=== PATIENT | male | born 1965 | race Caucasian/White ===

== ENCOUNTER 2016-03-08 15:54 | Emergency (ER) | payer MEDICAID ==
[~2016-03-08] VITALS: Ht 180.3 cm; Wt 78.3 kg
[~2016-03-08 15:54] MED LIST: NAPR-576 PO
[2016-03-08 15:59] VITALS: BP 120/73; PULSE 86; RESP 16; TEMP 98.7; O2SAT 100
[2016-03-08] MEDS ORDERED: SODIUM CHLORIDE 0.9% FLUSH 5 ML FLUSH IVF PRN (16:30)
[2016-03-08 17:13] LABS: AUTOMATED NEUTROPHIL # 5.1 TH/MM3 (1.8-7.7); BASOPHIL # 0.1 TH/MM3 (0-0.2); BASOPHIL % 1.1 % (0.0-2.0); EOSINOPHIL # 0.2 TH/MM3 (0-0.4); EOSINOPHIL % 2.4 % (0.0-4.0); HEMATOCRIT 44.5 % (39.0-51.0); HEMO FLAGS DIFF FINAL; LYMPH % 33.9 % (9.0-44.0); MEAN CELL VOLUME 94.9 FL (80.0-100.0); MEAN CORPUSCULAR HEMOGLOBIN 32.3 PG (27.0-34.0); MEAN CORPUSCULAR HGB CONC 34.1 % (32.0-36.0); MONO % 5.6 % (0.0-8.0); PLATELET COUNT 248 TH/MM3 (150-450); POTASSIUM 4.2 MEQ/L (3.5-5.1); RED BLOOD COUNT 4.69 MIL/MM3 (4.50-5.90); RED CELL DISTRIBUTION WIDTH 13.3 % (11.6-17.2); WHITE BLOOD COUNT 8.9 TH/MM3 (4.0-11.0)
[2016-03-08 17:16] LABS: BICARBONATE 27.6 MEQ/L (21.0-32.0)
--- NOTE | 2016-03-08 17:16 | PD ---
HPI Chief Complaint: Musculoskeletal Complaint Time Seen by Provider: 16:16 Travel History International Travel<30 days: No Contact w/Intl Traveler<30days: No Traveled to known affect area: No History of Present Illness HPI 51-year-old male presents to the emergency room for evaluation of left calf pain for the past 4 days. Patient states it started off as a muscle spasm that woke him up in the middle of the night. The severe muscle spasm went away but he has continued residual pain that is worsened with palpation and ambulation. He has not taken anything for pain. Reports similar symptoms in the right leg previously but not at this time. He denies recent immobilization, history of cancer, history of DVT or PE. Reports father is on Coumadin for blood clots. PFSH Past Medical History Asthma: Yes (as a child) Anxiety: Yes Depression: Yes Heart Rhythm Problems: Yes Cardiovascular Problems: Yes Diminished Hearing: No Diverticulitis: Yes Endocrine: No Gastrointestinal Disorders: Yes (hx of diverticulitis) Genitourinary: No Immune Disorder: No Implanted Vascular Access Dvce: No Musculoskeletal: No Neurologic: No Psychiatric: Yes Reproductive: No Respiratory: Yes (ASTHMA) Immunizations Current: Yes Radiation Therapy: No Tetanus Vaccination: < 5 Years Influenza Vaccination: No PNEUMOCCOCAL Vaccine (Year): 2 Past Surgical History Abdominal Surgery: Yes (COLON RESECTION ) Oral Surgery: Yes (deviated septum repair) Pacemaker: No Other Surgery: Yes (NOSE REPAIR 1982) Family History Family Myocardial Infarction: Yes Family Hypercholesterolemia: Yes Social History Alcohol Use: Yes (OCC) Tobacco Use: Yes (1 PPD) Substance Use: No Allergies-Medications (Allergen,Severity, Reaction): Coded Allergies: No Known Allergies (Verified , 03/08/16) Reported Meds & Prescriptions Reported Meds & Active Scripts Active Ibuprofen 800 Mg Tab 800 Mg PO Q8H PRN Robaxin (Methocarbamol) 750 Mg Tab 750 Mg PO Q8HR Review of Systems Except as stated in HPI: all other systems reviewed are Neg Physical Exam Narrative GENERAL: Well-nourished, well-developed male in no acute distress. Afebrile. Ambulatory. SKIN: Warm and dry. HEAD: Normocephalic. EYES: No scleral icterus. No injection or drainage. NECK: Supple, trachea midline. No JVD or lymphadenopathy. EXTREMITY: Left calf is tender to palpation. Full range of motion in all joints. No edema. 2+ dorsalis pedis pulse in the left. No erythema or ecchymosis. Data Data Last Documented VS Vital Signs Date Time Temp Pulse Resp B/P Pulse Ox O2 Delivery O2 Flow Rate FiO2 03/08/16 15:59 98.7 86 16 120/73 100 Orders Prothrombin Time / Inr (Pt) (03/08/16 16:28) Act Partial Throm Time (Ptt) (03/08/16 16:28) Complete Blood Count With Diff (03/08/16 16:28) Basic Metabolic Panel (Bmp) (03/08/16 16:28) Iv Access Insert/Monitor (03/08/16 16:28) Sodium Chloride 0.9% Flush (Ns Flush) (03/08/16 16:30) D-Dimer (03/08/16 16:28) Us Leg Venous Doppler (03/08/16 ) Labs Laboratory Tests Test 03/08/16 16:40 White Blood Count 8.9 TH/MM3 Red Blood Count 4.69 MIL/MM3 Hemoglobin 15.2 GM/DL Hematocrit 44.5 % Mean Corpuscular Volume 94.9 FL Mean Corpuscular Hemoglobin 32.3 PG Mean Corpuscular Hemoglobin 34.1 % Concent Red Cell Distribution Width 13.3 % Platelet Count 248 TH/MM3 Mean Platelet Volume 8.9 FL Neutrophils (%) (Auto) 57.0 % Lymphocytes (%) (Auto) 33.9 % Monocytes (%) (Auto) 5.6 % Eosinophils (%) (Auto) 2.4 % Basophils (%) (Auto) 1.1 % Neutrophils # (Auto) 5.1 TH/MM3 Lymphocytes # (Auto) 3.0 TH/MM3 Monocytes # (Auto) 0.5 TH/MM3 Eosinophils # (Auto) 0.2 TH/MM3 Basophils # (Auto) 0.1 TH/MM3 CBC Comment DIFF FINAL Differential Comment Prothrombin Time 10.7 SEC Prothromb Time International 1.0 RATIO Ratio Activated Partial 29.6 SEC Thromboplast Time D-Dimer Quantitative (PE/DVT) LESS THAN 0.19 MG/L FEU Sodium Level 143 MEQ/L Potassium Level 4.2 MEQ/L Chloride Level 108 MEQ/L Carbon Dioxide Level 27.6 MEQ/L Anion Gap 7 MEQ/L Blood Urea Nitrogen 14 MG/DL Creatinine 0.83 MG/DL Estimat Glomerular Filtration 98 ML/MIN Rate Random Glucose 104 MG/DL Calcium Level 8.8 MG/DL [facility] Medical Decision Making Medical Screen Exam Complete: Yes Emergency Medical Condition: Yes Medical Record Reviewed: Yes Differential Diagnosis Muscle spasm versus cramp versus strain versus sprain versus DVT unlikely Narrative Course 51-year-old male presents to the emergency room for evaluation of left calf pain for the past 4 days. Patient states it started as a muscle spasm in the middle of the night but has not seemed to go away. He has few risk factors for DVT but father had history of phlebitis for which he is prescribed Coumadin. Physical exam is unremarkable. There is tenderness to palpation along the left calf but no erythema or edema. Left lower extremity is neurovascularly intact with 2+ dorsalis pedis pulse. Electrolytes within normal limits. CBC unremarkable. Coagulation studies are within normal limits. Ultrasound is negative for DVT; shows small mass measuring 4.7 x 1.9 cm which is nonspecific. Patient provided a copy of report. Patient likely has muscle spasm. Discharged with prescription for Robaxin and ibuprofen. Told to follow up with the primary care physician or return to the emergency room for worsening symptoms. He understands and agrees to this plan. Diagnosis Primary Impression: Muscle spasm of calf Referrals: Primary Care Physician Patient Instructions: General Instructions, Muscle Cramp (ED) Additional Instructions: Rest and drink plenty of fluids. Take Robaxin as directed, as needed for pain. Take ibuprofen with food as directed, as needed for pain. Apply ice to the affected area for 20 minutes at a time, as needed for pain and swelling. Follow-up with a primary care physician. Return to the emergency room for worsening symptoms. Med/Other Pt SpecificInfo: Prescription(s) given Scripts Ibuprofen 800 Mg [id number] Mg PO Q8H PRN (Pain/Inflammation) #21 TAB Ref 0 Prov:Maki Santiago MD 03/08/16 Methocarbamol (Robaxin)750 Mg [id number] Mg PO Q8HR #21 TAB Ref 0 Prov:Maki Santiago MD 03/08/16 Disposition: 01 DISCHARGE HOME Condition: Stable Estela Mariano Mar 08, 2016 17:16
[2016-03-08 17:19] LABS: APTT (PATIENT) 29.6 SEC (24.3-30.1); PROTHROMBIN TIME - PATIENT 10.7 SEC (9.8-11.6)
[2016-03-08] MEDS ORDERED: IBUP800T23 PO (17:23)
[2016-03-08] MEDS ORDERED: ROBA750T PO (17:23)
--- NOTE | 2016-03-08 18:00 | RADHPO ---
EXAM DATE/TIME: 03/08/2016 17:14 [facility] COMPARISON: US LEG LEFT VENOUS DOPPLER, April 12, 2013, 12:18. INDICATIONS : Pain and cramping in left lower extremity. MEDICAL HISTORY : Diverticulitis. Asthma. SURGICAL HISTORY : Deviated septum repair. Colon resection. Right thumb fracture repair. ENCOUNTER: Initial ACUITY: >1 year PAIN SCORE: 5/10 LOCATION: Left leg. TECHNIQUE: Venous ultrasound of the leg was performed from the inguinal ligament to the proximal calf. Real-sujey e, color Doppler and spectral tracing, compression and augmentation techniques were used. FINDINGS: There is normal compressibility of the deep venous system from the inguinal region to the proximal ca lf. No echogenic clot is seen in the lumen of the common femoral, femoral, popliteal, and posterior tibial veins. There is a normal response of the venous system to proximal and distal augmentation an d respiration. Small complex collection within the left posterior calf measuring 4.7 x 0.7 x 1.9 cm. CONCLUSION: 1. No evidence of deep venous thrombosis within the left lower extremity. 2. Small complex collection within the left posterior calf measuring 4.7 x 0.7 x 1.9 cm which is nons pecific. Ye Soriano MD on March 08, 2016 at 17:57 Board Certified Radiologist. This report was verified electronically.
== END 2016-03-08 18:24 | disposition home or self-care (01) ==
LOC: PHEFT 15:54
DX: M62.838 Other muscle spasm (principal); F17.210 Nicotine dependence, cigarettes, uncomplicated
CPT/HCPCS: 80048; 85025; 85379; 85610; 85730; 93971

== ENCOUNTER 2016-09-04 22:57 | Emergency (ER) | payer SELFPAY ==
[~2016-09-04] VITALS: Ht 180.3 cm; Wt 78.5 kg
[~2016-09-04 22:57] MED LIST changes: +IBUP800T23 PO; -NAPR-576 PO; +ROBA750T PO
[2016-09-04 23:01] VITALS: BP 116/73; PULSE 67; RESP 16; TEMP 98.1; O2SAT 98
[2016-09-04 23:20] VITALS: TEMP 98.1
[2016-09-04] MEDS ORDERED: PENI500T PO (23:24)
[2016-09-04] MEDS ORDERED: HYDR-3534 PO (23:24)
--- NOTE | 2016-09-04 23:24 | PD ---
HPI Chief Complaint: Oral / Dental Pain or Problem Time Seen by Provider: 23:09 Travel History International Travel<30 days: No Contact w/Intl Traveler<30days: No Traveled to known affect area: No History of Present Illness HPI This 51-year-old male complaining of tooth pain. He's having pain in his right posterior molar maxillary. Been going on for about a day. He took some ibuprofen without any relief. It is sensitive to hot and cold. PFSH Past Medical History Asthma: Yes (as a child) Anxiety: Yes Depression: Yes Heart Rhythm Problems: Yes Cardiovascular Problems: Yes Diminished Hearing: No Diverticulitis: Yes Endocrine: No Gastrointestinal Disorders: Yes (hx of diverticulitis) Genitourinary: No Immune Disorder: No Implanted Vascular Access Dvce: No Musculoskeletal: No Neurologic: No Psychiatric: Yes Reproductive: No Respiratory: Yes (ASTHMA) Immunizations Current: Yes Radiation Therapy: No PNEUMOCCOCAL Vaccine (Year): 2 Past Surgical History Abdominal Surgery: Yes (COLON RESECTION ) Oral Surgery: Yes (deviated septum repair) Pacemaker: No Other Surgery: Yes (NOSE REPAIR 1982) Family History Family Hypercholesterolemia: Yes Social History Alcohol Use: Yes (OCC) Tobacco Use: Yes (1 PPD) Substance Use: No Allergies-Medications (Allergen,Severity, Reaction): Coded Allergies: No Known Allergies (Verified , 03/08/16) Reported Meds & Prescriptions Reported Meds & Active Scripts Active Ibuprofen 800 Mg Tab 800 Mg PO Q8H PRN Robaxin (Methocarbamol) 750 Mg Tab 750 Mg PO Q8HR Review of Systems General / Constitutional: No: Fever, Chills Eyes: No: Diploplia HENT: Positive: Dental Difficulties Cardiovascular: No: Chest Pain or Discomfort, Palpitations Respiratory: No: Cough, Shortness of Breath Gastrointestinal: No: Vomiting, Diarrhea Genitourinary: No: Urgency, Frequency Musculoskeletal: No: Myalgias, Arthralgias Skin: No Rash, No Itching Neurologic: No: Weakness, Dizziness Psychiatric: No: Anxiety Physical Exam Narrative GENERAL: [-] SKIN: Focused skin assessment warm/dry. HEAD: Atraumatic. Normocephalic. EYES: Pupils equal and round. No scleral icterus. No injection or drainage. ENT: No nasal bleeding or discharge. Mucous membranes pink and moist. The right posterior molar maxillary has considerable erosiom of the gum is tender to percussion. NECK: Trachea midline. No JVD. MUSCULOSKELETAL: No obvious deformities. No clubbing. No cyanosis. No edema. NEUROLOGICAL: Awake and alert. No obvious cranial nerve deficits. Motor grossly within normal limits. Normal speech. PSYCHIATRIC: Appropriate mood and affect; insight and judgment normal. Data Data Last Documented VS Vital Signs Date Time Temp Pulse Resp B/P Pulse Ox O2 Delivery O2 Flow Rate FiO2 09/04/16 23:01 98.1 67 16 116/73 98 MDM Medical Decision Making Medical Screen Exam Complete: Yes Emergency Medical Condition: Yes Medical Record Reviewed: Yes Differential Diagnosis Differential includes dental caries, abscess, or divide is Narrative Course Patient be given prescription for penicillin and Lortab. The importance of dental follow-up was stressed the patient Diagnosis Primary Impression: Dental abscess Scripts Hydrocodone-Acetaminophen (Lortab)7.5-325 Mg Tab1 Tab PO Q6H PRN (PAIN) #30 TAB Ref 0 Prov:Ollie Diaz MD 09/04/16 Penicillin V Potassium 500 Mg [id number] Mg PO Q6H 14 Days Ref 0 Prov:Ollie Diaz MD 09/04/16 Disposition: 01 DISCHARGE HOME Condition: Stable Ollie Diaz MD Sep 04, 2016 23:24
[2016-09-04] MEDS ORDERED: IBUPROFEN 600 MG TAB PO ONE (23:30)
[2016-09-04] MEDS ORDERED: PENICILLIN V POTASSIUM 500 MG TAB PO ONE (23:30)
== END 2016-09-04 23:43 | disposition home or self-care (01) ==
LOC: PHED 22:57
DX: K04.7 Periapical abscess without sinus (principal); F17.200 Nicotine dependence, unspecified, uncomplicated; Z86.59 Personal history of other mental and behavioral disorders; Z86.79 Personal history of other diseases of the circulatory system; Z87.19 Personal history of other diseases of the digestive system
CPT/HCPCS: 99284

== ENCOUNTER 2017-07-23 16:51 | Emergency (ER) | payer SELFPAY ==
[~2017-07-23] VITALS: Ht 180.3 cm; Wt 74.5 kg
[~2017-07-23 16:51] MED LIST changes: +HYDR-3534 PO; +IBUP1TAB7 PO; -IBUP800T23 PO; +PENI500T PO
[2017-07-23 17:12] VITALS: BP 107/59; PULSE 62; RESP 16; TEMP 98.5; O2SAT 96
--- NOTE | 2017-07-23 17:51 | PD ---
HPI Chief Complaint: Injury Time Seen by Provider: 17:18 Travel History International Travel<30 days: No Contact w/Intl Traveler<30days: No Traveled to known affect area: No History of Present Illness HPI 52 year old male here with right foot pain 1 days. He reports he stubbed the fourth and fifth toe on a piece of furniture. He has pain with weightbearing and range of motion. Symptom severity is moderate. Alleviated slightly with rest. No other injuries. PFSH Past Medical History Asthma: Yes (as a child) Anxiety: Yes Depression: Yes Heart Rhythm Problems: Yes Cardiovascular Problems: Yes COPD: Yes Diminished Hearing: No Diverticulitis: Yes Endocrine: No Gastrointestinal Disorders: Yes (hx of diverticulitis) Genitourinary: No Immune Disorder: No Implanted Vascular Access Dvce: No Musculoskeletal: No Neurologic: No Psychiatric: Yes Reproductive: No Respiratory: Yes (copd) Immunizations Current: Yes Radiation Therapy: No Tetanus Vaccination: > 5 Years Influenza Vaccination: No PNEUMOCCOCAL Vaccine (Year): 2 Past Surgical History Abdominal Surgery: Yes (COLON RESECTION ) Oral Surgery: Yes (deviated septum repair) Pacemaker: No Other Surgery: Yes (NOSE REPAIR 1982) Family History Family Myocardial Infarction: Yes Family Hypercholesterolemia: Yes Social History Alcohol Use: Yes (OCC) Tobacco Use: Yes (1 PPD) Substance Use: No Allergies-Medications (Allergen,Severity, Reaction): Coded Allergies: No Known Allergies (Verified Adverse Reaction, Unknown, 07/23/17) Reported Meds & Prescriptions Reported Meds & Active Scripts Active No Active Prescriptions or Reported Medications Review of Systems Except as stated in HPI: all other systems reviewed are Neg Physical Exam Narrative GENERAL: Alert and well-appearing 52-year-old male SKIN: Warm and dry. HEAD: Normocephalic. Atraumatic EYES: No injection or drainage. NECK: Supple RESPIRATORY: No accessory muscle use. GASTROINTESTINAL: nondistended. MUSCULOSKELETAL: No cyanosis. RLE: Notable swelling and ecchymosis to the fourth and fifth toes. No obvious deformity. Limited range of motion due to pain. Normal sensation. Brisk cap refill. Data Data Last Documented VS Vital Signs Date Time Temp Pulse Resp B/P (MAP) Pulse Ox O2 Delivery O2 Flow Rate FiO2 07/23/17 17:12 98.5 62 16 107/59 (75) 96 Orders Orders Foot, Complete ([id number]) (07/23/17 ) Post Op Boot (Shoe) (07/23/17 ) Ed Discharge Order (07/23/17 19:11) MDM Medical Decision Making Medical Screen Exam Complete: Yes Emergency Medical Condition: Yes Differential Diagnosis Toe fracture, toe sprain, contusion Narrative Course 52-year-old male with injury to the right foot. Extremities neurovascularly intact. X-ray read by radiology as negative for fracture. On my review of the x-ray there is possible fracture of the fifth mid phalanx. Postop shoe applied to patient. He is instructed to rest, ice, elevate, follow-up with podiatry. 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 Postop shoe for comfort. Follow-up with podiatry. Scripts Ibuprofen (Ibuprofen) 800 Mg Tab 800 MG PO Q6HR Y for PAIN, #40 TAB 0 Refills Prov: Caitlin Rodríguez 07/23/17 Tramadol (Ultram) 50 Mg Tab 50 MG PO Q6H Y for PAIN, #8 TAB 0 Refills Prov: Caitlin Rodríguez 07/23/17 Disposition: 01 DISCHARGE HOME Condition: Stable Caitlin Rodríguez July 23, 2017 17:51
--- NOTE | 2017-07-23 18:36 | RADRPT ---
EXAM DATE: 07/23/2017 6:16 PM EDT AGE/SEX: 52 years / Male INDICATIONS: Stubbed right foot, pain to 2nd thru 5th toes and base of toes CLINICAL DATA: This is the patient's initial encounter. Patient reports that signs and symptoms have been present for 2 days and indicates a pain score of 8/10. MEDICAL/SURGICAL HISTORY: Chronic obstructive pulmonary disease. None. COMPARISON: None. FINDINGS: Bony structures are intact and in normal alignment. Old trauma involving the medial and distal aspect of the middle phalanx of the great toe. Osseous density is normal. Soft tissues are unremarkable. No radiopaque foreign bodies seen. CONCLUSION: No acute abnormality. Electronically signed by: Rob Love MD 07/23/2017 6:35 PM EDT
[2017-07-23] MEDS ORDERED: TRAM50 PO (19:21)
[2017-07-23] MEDS ORDERED: IBUP1TAB7 PO (19:21)
== END 2017-07-23 19:30 | disposition home or self-care (01) ==
LOC: PHEFT 16:51
DX: S92.504A Nondisplaced unspecified fracture of right lesser toe(s), initial encounter for closed fracture (principal); F41.9 Anxiety disorder, unspecified; F32.9 Major depressive disorder, single episode, unspecified; J44.9 Chronic obstructive pulmonary disease, unspecified; F17.200 Nicotine dependence, unspecified, uncomplicated; W22.03XA Walked into furniture, initial encounter; Z87.19 Personal history of other diseases of the digestive system
CPT/HCPCS: 73630; 99283